=== PATIENT | female | born 1990 | race Two or more races ===

== ENCOUNTER 2016-11-15 16:55 | Emergency (ER) | payer MEDICAID, OTHER ==
[2016-11-15 17:45] LABS: SPECIFIC GRAVITY 1.025 (1.001-1.030); URINE BILIRUBIN NEGATIVE (NEGATIVE); URINE BLOOD 1+ (NEGATIVE); URINE GLUCOSE (UA) NEGATIVE (NEGATIVE); URINE LEUKOCYTE ESTERASE 1+ (NEGATIVE); URINE NITRITE POSITIVE (NEGATIVE); URINE PROTEIN 1+ (NEGATIVE); URINE UROBILINOGEN 1 mg/dL (0-1 mg/dl)
[2016-11-15] MEDS ORDERED: DEXAMETHASONE SOD PHOS 10 MG/1 ML VIAL ONE (17:49)
[2016-11-15 17:51] LABS: ABSOLUTE NEUTROPHIL COUNT 3.8 K/mm3 (1.8-7.7); BASO # 0.1 K/mm3 (0.0-0.2); BASO % 0.6 % (0.2-1.0); EOS # 0.3 (0.0-0.5); EOS % 3.9 % (0.9-2.9); HEMATOCRIT 42.7 % (37.0-47.0); HEMOGLOBIN 14.7 gm/l (12.0-16.0); IMM NEUT% 0.5 % (0-1); LYMPH % 37.8 % (15-45); MEAN CELL VOLUME 89.9 fl (81.0-99.0); MEAN CORPUSCULAR HEMOGLOBIN 30.9 pg (27.0-31.0); MEAN CORPUSCULAR HGB CONC 34.4 g/dl (33.0-37.0); MEAN PLATELET VOLUME 10.9 fl (7.4-10.4); MONO # 0.8 (0.0-0.8); NEUT % 47.2 % (43-75); PLATELET COUNT 259 K/mm3 (130-400); RED CELL DISTRIBUTION WIDTH 12.7 % (11.5-14.5)
[2016-11-15 18:01] LABS: URINE APPEARANCE HAZY; URINE COLOR AMBER
[2016-11-15 18:02] LABS: URINE BACTERIA 1+; URINE EPITHELIAL CELLS FEW /hpf; URINE WBC 25-35 /hpf
[2016-11-15] MEDS ORDERED: ALBUTEROL/IPRATROPIUM 2.5/0.5 MG 3 ML/EACH DOSE ONE (18:05)
[2016-11-15 18:12] LABS: ALB/GLOB RATIO 1.3 (>1.0); ALBUMIN 4.4 gm/dL (3.5-5.7); CALCIUM 9.4 mg/dL (8.6-10.3)
[2016-11-15] MEDS ORDERED: CEFTRIAXONE 2 GRAM DUPLEX 50 ML IV ONE (18:34)
== END 2016-11-15 19:10 | disposition home or self-care (01) ==
LOC: ED 16:55
DX: N39.0 Urinary tract infection, site not specified (principal)
CPT/HCPCS: 84702; 84703; 85025; 87086; 80053; 87186; 81001; 94640; 99283 ×2; 96365; J1100; J0696